=== PATIENT | female | born 1980 | race Caucasian/White ===

== ENCOUNTER 2022-06-26 20:55 | Emergency (ER) | payer MEDICAID ==
[2022-06-27] MEDS ORDERED: HYDROmorphone 1 MG/ML Syringe IM ONE ×2 (00:01→02:12)
[2022-06-27] MEDS ORDERED: Diazepam 2 MG Tab PO ONE (00:01)
[2022-06-27] MEDS ORDERED: Ketorolac 30 MG/ML SDV IM ONE ×2 (00:01→02:13)
[2022-06-27 00:23] VITALS: BP 103/63; PULSE 76
[2022-06-27] MEDS ORDERED: Diazepam 2 MG Tab PO SCH (02:15)
== END 2022-06-27 03:00 | disposition home or self-care (01) ==
LOC: MW.ED 20:55 → MERGE 20:55 → MW.ED 06-27 03:00
DX: S70.02XA Contusion of left hip, initial encounter (principal); S70.12XA Contusion of left thigh, initial encounter; Z88.1 Allergy status to other antibiotic agents; Z88.8 Allergy status to other drugs, medicaments and biological substances; W00.0XXA Fall on same level due to ice and snow, initial encounter
CPT/HCPCS: 72192; 72192-26; 73502-26-LT; 73502-LT; 96372; 99284; A9270-GY; J1170; J1885